=== PATIENT | male | born 2000 | race Caucasian/White ===

== ENCOUNTER 2020-01-16 10:31 | Emergency (ER) | payer OTHER ==
[~2020-01-16] VITALS: Ht 175.3 cm; Wt 54.4 kg
[~2020-01-16 10:31] MED LIST: MELATONIN3 MG PO; OSELB75 PO; PROAIR HFA8.5 GM INH; TAMIFLU6 MG/1 ML PO
[2020-01-16 11:40] LABS: ABSOLUTE LYMPHOCYTES 1.6 thou/uL (0.8-5.3); ABSOLUTE MONOCYTES 0.4 thou/uL (0.0-1.2); ABSOLUTE NEUTROPHILS 2.9 thou/uL (1.6-8.1); BASOPHILS 0.5 %; EOSINOPHILS 0.9 %; HEMATOCRIT 49.2 % (42.0-52.0); HEMOGLOBIN 17.6 gm/dL (14.0-18.0); LYMPHOCYTES 32.6 %; MCH 33.4 pg (26.0-34.0); MCHC 35.7 g/dL (28.0-37.0); MCV 93.6 fL (80.0-100.0); MONOCYTES 8.8 %; MPV 9.4 fl. (7.2-11.1); NUCLEATED RBCS 0 /100WBC; PLATELET COUNT* 215 thou/uL (150-400); POLYS 57.2 %; RBC 5.26 mil/uL (4.50-6.00); RDW-CV 12.3 % (10.5-14.5)
[2020-01-16 11:50] LABS: CALCIUM 8.7 mg/dL (8.5-10.1); CREATININE 0.9 mg/dL (0.6-1.3); POTASSIUM 3.9 mmol/L (3.5-5.1)
[2020-01-16 12:00] LABS: ALBUMIN 4.6 g/dL (3.4-5.0); MAGNESIUM 1.9 mg/dL (1.8-2.4); TOTAL BILIRUBIN 0.5 mg/dL (<0.1-1.0); TOTAL PROTEIN 7.7 g/dL (6.4-8.2)
[2020-01-16 13:25] VITALS: BP 109/69
--- NOTE | 2020-01-17 10:55 | EKG ---
[place] [address] ELECTROCARDIOGRAM REPORT Name: DENISE AVILA Room: [facility]#: [id number] Admission: 01/16/20 Attend Phys: Discharge: 01/16/20 Date of : [birth year] Date of Service: 01/16/20 1035 Report #: [id number] THIS REPORT FOR: //name// [facility] ED Test Date: 2020-01-16 Test Time: 10:35:49 Pat Name: DENISE AVILA Department: Room: Gender: Animal Rescuer: [place] : [id number] Requested By: Toribio Marques Order Number: [id number] MD: Rustam Murphy Measurements Intervals [place] Rate: 88 P: [place]: QRS: 64 QRSD: 82 T: 74 QT: 337 QTc: 408 Interpretive Statements normal sinu rhythm Minimal ST depression, lateral leads No previous ECG available for comparison Electronically Signed On 01-17-2020 10:55:10 CDT by Rustam Murphy [email or web address] <ELECTRONICALLY SIGNED> By: Rustam Murphy MD, [facility] 01/17/20 1055 1034 34 Rustam Murphy MD, FACC /EPI
== END 2020-01-16 13:25 | disposition home or self-care (01) ==
LOC: M.ERS 10:31
PROVIDERS: Emergency Medicine Emergency Medical Services
DX: R07.89 Other chest pain (principal); Z20.828 Contact with and (suspected) exposure to other viral communicable diseases